=== PATIENT | male | born 1950 | race Caucasian/White ===

== ENCOUNTER 2019-03-02 10:24 | Day surgery (SDC) | payer MEDICARE, BC ==
[2019-03-01 14:14] VITALS: BMI 29.2
--- NOTE | 2019-03-01 15:34 | HP ---
HISTORY OF PRESENT ILLNESS: This is a 68-year-old male comes for a colonoscopy for colon cancer screening. The patient has no specific GI symptoms. There is no family history of colon cancer. The patient has acid reflux off and on. At times, he feels fullness in the throat. dysphagia. ALLERGIES: NONE. SOCIAL HISTORY: The patient does not smoke or drink alcohol. MEDICAL ILLNESS: 1. Hernia repair. 2. Cataracts. 3. Kidney stone. 4. Chronic acid reflux. PHYSICAL EXAMINATION: VITAL SIGNS: His pulse is 70 and blood pressure is 120/76. Weight . HEENT: Conjunctivae clear. NECK: Supple. No adenitis or thyromegaly. CARDIOVASCULAR SYSTEM: First and second heart sounds heard. LUNGS: Clear to auscultation. ABDOMEN: Soft. No organomegaly. No tenderness. No masses. EXTREMITIES: Reveal no edema. ADMITTING DIAGNOSIS: A 68-year-old male comes for a colonoscopy for colon cancer screening. Job ID: [id number]
[2019-03-02] MEDS ORDERED: PROPOFOL 200 MG/20 ML VIAL ONE (16:11)
--- NOTE | 2019-03-02 18:03 | OP ---
DATE OF PROCEDURE: 03/02/2019 OPERATIVE PROCEDURE: Colonoscopy. PREOPERATIVE DIAGNOSIS: A 68-year-old male undergoing colonoscopy for colon cancer screening. POSTOPERATIVE DIAGNOSES: 1. Sigmoid diverticular disease with occasional diverticula over the transverse colon, also just past the hepatic flexure and ascending colon area. 2. Small hemorrhoids. 3. Hypertrophied anal papillae. DESCRIPTION OF PROCEDURE: The patient was placed on his left lateral position and was given sedation by Anesthesia Department. The rectal exam was done before the scope was advanced into the rectum. No lesions felt on rectal exam. Then, Pentax videocolonoscope was introduced into the rectum and advanced all the way to cecum. The prep was good. The mucosa appears normal throughout the colon. The appendiceal orifice, ileocecal wall, and cecum, no pathology seen. There was occasional diverticula seen over the ascending colon area, just past the hepatic flexure. The transverse colon again showed very mild diverticular disease. The splenic flexure, descending colon showed very occasional diverticula. The sigmoid colon showed scattered diverticula. Retroflexion of scope in the rectum showed small hemorrhoids and hypertrophied anal papillae. DISCHARGE PLANS: A 68-year-old male comes for colonoscopy for colon cancer. He has already admitted for colon cancer. The colonoscopy showed no polyps. He was found to have scattered mild diverticula of the sigmoid colon all the way to the ascending colon area. DISCHARGE RECOMMENDATION: 1. High-fiber diet. 2. Metamucil. 3. The patient advised to call me if he develops abdominal pain, hematochezia. 4. No more colonoscopy necessary for screening as he will be 78 ten year then. Job ID: [id number]
== END 2019-03-02 14:12 | disposition home or self-care (01) ==
LOC: SDC 10:24
PROVIDERS: ATTEND Internal Medicine Gastroenterology
PROC: 0DJD8ZZ Inspection of Lower Intestinal Tract, Via Natural or Artificial Opening Endoscopic (ICD-10-PCS; principal; 2019-03-02)
DX: Z12.11 Encounter for screening for malignant neoplasm of colon (principal); K57.30 Diverticulosis of large intestine without perforation or abscess without bleeding; K64.9 Unspecified hemorrhoids; K63.89 Other specified diseases of intestine; K21.9 Gastro-esophageal reflux disease without esophagitis
CPT/HCPCS: J2704